=== PATIENT | male | born 1980 | race Hispanic/Latino ===

== ENCOUNTER 2022-07-16 02:01 | Emergency (ER) | payer SELFPAY ==
[~2022-07-16] VITALS: Ht 180.3 cm; Wt 272.2 kg
[2022-07-16] MEDS ORDERED: BELLADONNA ALK/PHENOBARBITAL 5 ML UDC PO ONE (02:15)
[2022-07-16] MEDS ORDERED: LIDOCAINE VISC 2% SOLN 15 ML UDC PO ONE (02:15)
[2022-07-16] MEDS ORDERED: MAGNESIUM/ALUMINUM/SIMETHICONE 30 ML UDC PO ONE (02:15)
[2022-07-16] MEDS ORDERED: LIDOCAINE VISC 2% SOLN 15 ML UDC ONE (02:34)
[2022-07-16] MEDS ORDERED: BELLADONNA ALK/PHENOBARBITAL 5 ML UDC ONE (02:34)
[2022-07-16 02:50] LABS: BASOPHILS # (AUTO) 0.1 (0.0-0.1); BASOPHILS % 0.5 % (0.0-1.0); EOSINOPHILS # (AUTO) 0.4 (0.0-0.4); EOSINOPHILS % 2.4 % (0.0-6.0); HEMATOCRIT 45.3 % (38.2-49.6); LYMPHOCYTES # (AUTO) 3.5 (1.0-3.2); LYMPHOCYTES % 23.3 % (18.0-39.1); MEAN CORPUSCULAR HEMOGLOBIN 27.9 pg (28-32); MEAN CORPUSCULAR HGB CONC 30.9 g/dL (31-35); MEAN CORPUSCULAR VOLUME 90.4 fL (81-99); MONOCYTES # (AUTO) 1.2 (0.2-0.8); MONOCYTES % 8.2 % (4.4-11.3); NEUTROPHILS # (AUTO) 9.7 (2.1-6.9); NEUTROPHILS % 64.6 % (38.7-80.0); PLATELET COUNT 300 x10e3/uL (140-360); RED BLOOD COUNT 5.01 x10e6/uL (4.3-5.7); RED CELL DISTRIBUTION WIDTH 13.5 % (11.7-14.4)
[2022-07-16] MEDS ORDERED: PANTOPRAZOLE SOD 40 MG TABEC ONE (02:52)
[2022-07-16] MEDS ORDERED: PANTOPRAZOLE SOD 40 MG TABEC PO ONE (03:00)
[2022-07-16 03:11] LABS: CREATINE KINASE MB 1.4 ng/mL (0-5.0)
[2022-07-16 03:13] LABS: ALBUMIN 4.1 g/dL (3.5-5.0); ALBUMIN/GLOBULIN RATIO 1.2 (0.8-2.0); ANION GAP 17.5 mmol/L (8-16); CALCIUM 9.5 mg/dL (8.4-10.2); CREATININE, SERUM 0.95 mg/dL (0.72-1.25); POTASSIUM 4.5 mmol/L (3.5-5.1)
[2022-07-16] MEDS ORDERED: PANTOPRAZOLE SO40 MG PO (03:34)
== END 2022-07-16 03:42 | disposition home or self-care (01) ==
LOC: ER 02:07
DX: R50.9 Fever, unspecified (principal); K29.70 Gastritis, unspecified, without bleeding; R10.13 Epigastric pain; G47.30 Sleep apnea, unspecified
CPT/HCPCS: 36415; 80053; 82550; 82553; 83690; 84484; 85025; 93005; 99283; C9113; S0164